=== PATIENT | female | born 2000 | race Caucasian/White ===

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

== ENCOUNTER 2021-01-06 17:42 | Emergency (ER) | payer MEDICAID, OTHER ==
[~2021-01-06] VITALS: Ht 157.5 cm; Wt 75.3 kg
[2021-01-06 17:49] VITALS: BP 120/77
--- NOTE | 2021-01-06 20:51 | NUR ---
LABS AND UA COLLECTED. PATIENT RETURNED TO LOBBY WITH STEADY GAIT.
--- NOTE | 2021-01-06 20:58 | NUR ---
LABS AND UA GIVEN TO CIGAR MAKING MACHINE OPERATOR.
[2021-01-06 21:26] LABS: BASOPHILS % (AUTO) 0.1 % (0.0-2.0); EOSINOPHILS % (AUTO) 0.1 % (0.0-4.0); HEMATOCRIT 38.8 % (36-48); LYMPHOCYTES # (AUTO) 0.6 K/uL (2.5-16.5); LYMPHOCYTES % (AUTO) 7.8 % (20.5-51.1); MEAN CORPUSCULAR HEMOGLOBIN 30 pg (27-31); MEAN CORPUSCULAR HGB CONC 34 g/dL (33-37); MEAN CORPUSCULAR VOLUME 89.8 fL (80-94); MONOCYTES # (AUTO) 0.5 K/uL (0.8-1.0); MONOCYTES % (AUTO) 5.5 % (1.7-9.3); NEUTROPHILS # (AUTO) 7.1 K/uL (1.8-7.7); NEUTROPHILS % (AUTO) 86.5 % (42.2-75.2); PLATELET COUNT (AUTO) 228 K/uL (140-450); RED BLOOD CELL COUNT(AUTO) 4.32 MIL/uL (4.20-5.40); RED CELL DISTRIBUTION WIDTH 13.5 % (11.6-13.7); WHITE BLOOD COUNT (AUTO) 8.3 K/uL (4.8-10.8)
[2021-01-06 21:45] LABS: ANION GAP 16.9 (8-16); CARBON DIOXIDE 25.4 mmol/L (21-32); CREATININE 0.6 mg/dL (0.6-1.3); POTASSIUM 3.3 mmol/L (3.5-5.1)
[2021-01-06 22:00] LABS: ALBUMIN 4.3 g/dL (3.4-5.0); TOTAL BILIRUBIN 0.6 mg/dL (0.0-1.0)
[2021-01-06] MEDS ORDERED: ONDANSETRON 4 MG ODT PO ONE (22:20)
[2021-01-06] MEDS ORDERED: ONDA4TAB PO (23:39)
[2021-01-06 23:42] VITALS: BP 118/68
== END 2021-01-06 23:42 | disposition home or self-care (01) ==
LOC: MED 17:42
DX: A08.4 Viral intestinal infection, unspecified (principal); Z88.2 Allergy status to sulfonamides; Z88.8 Allergy status to other drugs, medicaments and biological substances
CPT/HCPCS: 36415; 80053; 81002; 81025; 83690; 85025; 99283; Q0162

== ENCOUNTER 2021-01-10 16:42 | Emergency (ER) | payer MEDICAID ==
[~2021-01-10] VITALS: Ht 157.5 cm; Wt 74.8 kg
[~2021-01-10 16:42] MED LIST changes: +ONDA4TAB PO
[2021-01-10 16:57] VITALS: BP 108/64
--- NOTE | 2021-01-10 17:06 | NUR ---
Patient ambulated with steady gait to bed 7.
--- NOTE | 2021-01-10 17:28 | NUR ---
20 YEAR OLD FEMALE COMPLAINS OF VAGINAL BLEEDING X 3 DAYS. PT STATES SHE DOES NOT NORMALLY HAVE LARGE BLOOD CLOTS DURING PERIOD AND CONCERNED. PT AOX4, BREATHING EVEN AND UNLABORED, SKIN WARM AND DRY. BED IN LOWEST POSITION, LOCKED, BED RAIL UPX1. PMH - DENIES
[2021-01-10 17:37] VITALS: BP 108/64
--- NOTE | 2021-01-10 17:37 | NUR ---
Patient discharged with v/s stable. Written and verbal after care instructions about dysmenorrhea given and explained. Patient verbalized understanding. Ambulatory with steady gait. All questions addressed prior to discharge. Advised to follow up with PMD.
== END 2021-01-10 17:37 | disposition home or self-care (01) ==
LOC: MED 16:42
DX: N94.6 Dysmenorrhea, unspecified (principal); R11.2 Nausea with vomiting, unspecified; Z88.1 Allergy status to other antibiotic agents; Z88.2 Allergy status to sulfonamides; Z79.899 Other long term (current) drug therapy
CPT/HCPCS: 81002; 81025; 99282

== ENCOUNTER 2022-08-18 11:02 | Emergency (ER) | payer MEDICAID ==
[~2022-08-18] VITALS: Ht 162.6 cm; Wt 90.3 kg
[2022-08-18 11:42] VITALS: BP 127/78
--- NOTE | 2022-08-18 11:50 | NUR ---
PT TO RESTROOM, WILL PROVIDE A URINE SAMPLE
[2022-08-18] MEDS ORDERED: FAMOTIDINE 20 MG TAB PO ONE (12:45)
[2022-08-18] MEDS ORDERED: ONDANSETRON 4 MG ODT PO ONE (12:45)
[2022-08-18] MEDS ORDERED: FAMO-90 PO (12:46)
[2022-08-18] MEDS ORDERED: ONDA-188 SL (12:46)
--- NOTE | 2022-08-18 13:01 | NUR ---
21/F PRESENTS TO ED WITH N/V SINCE THIS MORNING. PATIENT REPORTS SHE CONSUMED A LARGE AMOUNT OF ALCOHOL LAST NIGHT. DENIES ABDOMINAL PAIN, CP, DIZZINESS.
[2022-08-18 13:04] VITALS: BP 138/80
--- NOTE | 2022-08-18 13:05 | NUR ---
Patient discharged with v/s stable. Written and verbal after care instructions given and explained. Patient alert, oriented and verbalized understanding of instructions. Ambulatory with steady gait. All questions addressed prior to discharge. ID band removed. Patient advised to follow up with PMD. Rx of PEPCID AND ZOFRAN given. Patient educated on indication of medication including possible reaction and side effects. Opportunity to ask questions provided and answered.
== END 2022-08-18 13:05 | disposition home or self-care (01) ==
LOC: MED 11:02
DX: K29.20 Alcoholic gastritis without bleeding (principal); Z88.2 Allergy status to sulfonamides; Z88.8 Allergy status to other drugs, medicaments and biological substances; Z90.49 Acquired absence of other specified parts of digestive tract
CPT/HCPCS: 81025; 99283; Q0162

== ENCOUNTER 2023-04-08 20:25 | Emergency (ER) | payer MEDICAID ==
[~2023-04-08] VITALS: Ht 157.5 cm; Wt 90.7 kg
[2023-04-08 20:25] VITALS: BP 117/68; PULSE 90; RESP 18; TEMP 98.1; O2SAT 7
[~2023-04-08 20:25] MED LIST changes: +FAMO-90 PO; +ONDA-188 SL
[2023-04-08] MEDS ORDERED: CEPH-588 PO (23:11)
[2023-04-08] MEDS ORDERED: BEN50 PO (23:11)
[2023-04-08 23:29] VITALS: BP 118/68; PULSE 88; RESP 18; TEMP 98.1; O2SAT 99
== END 2023-04-08 23:29 | disposition home or self-care (01) ==
LOC: MED 20:25
DX: L03.116 Cellulitis of left lower limb (principal); T63.441A Toxic effect of venom of bees, accidental (unintentional), initial encounter; Z79.899 Other long term (current) drug therapy; Y92.89 Other specified places as the place of occurrence of the external cause
CPT/HCPCS: 99283